=== PATIENT | female | born 1965 | race Caucasian/White ===

== ENCOUNTER → 2016-12-13 | Outpatient (CLI) | payer BC ==
[~2016-12-13] MED LIST: LOMOTIL 0.025 M1 TAB PO; Zofran4 MG PO
== END | disposition home or self-care (01) ==
LOC: MAMMO 08:17
DX: Z12.31 Encounter for screening mammogram for malignant neoplasm of breast (principal); Z80.3 Family history of malignant neoplasm of breast

== ENCOUNTER 2019-10-26 13:22 | Emergency (ER) | payer BC ==
[~2019-10-26] VITALS: Ht 165.1 cm; Wt 61.2 kg
[2019-10-26] MEDS ORDERED: CEPHALEXIN500 M1 PO (17:16)
[2019-10-26] MEDS ORDERED: ULTRAM50 MG PO (17:16)
== END 2019-10-26 17:30 | disposition home or self-care (01) ==
LOC: ED 13:22
DX: S00.11XA Contusion of right eyelid and periocular area, initial encounter (principal); S80.02XA Contusion of left knee, initial encounter; S90.31XA Contusion of right foot, initial encounter; S00.33XA Contusion of nose, initial encounter; W18.39XA Other fall on same level, initial encounter; Y93.89 Activity, other specified; Y92.39 Other specified sports and athletic area as the place of occurrence of the external cause; Y99.8 Other external cause status